=== PATIENT | female | born 1955 | race Two or more races ===

== ENCOUNTER 2023-07-21 12:57 | Inpatient (IN) | payer MEDICARE, BC ==
[~2023-07-21] VITALS: Ht 160 cm; Wt 95.3 kg
[2023-07-21] MEDS ORDERED: MORPHINE SULFATE INJ 4 MG/ML DISP.SYRIN ONE (13:40)
[2023-07-21] MEDS ORDERED: ONDANSETRON HCL/PF 4 MG/2 ML VIAL ONE (13:40)
[2023-07-21] MEDS: MORPHINE SULFATE INJ 2 MG/ML DISP.SYRIN IV ONE (14:00)
[2023-07-21] MEDS: IV NS 0.9% 1,000 ML BAG IV ONE (14:00)
[2023-07-21] MEDS: ONDANSETRON HCL/PF 4 MG/2 ML VIAL IVP ONE (14:01)
[2023-07-21 14:02] LABS: BASOPHILS % (AUTO) 0.8 % (0.0-2.0); EOSINOPHILS # (AUTO) 0.2 K/uL (0.0-0.7); EOSINOPHILS % (AUTO) 3.9 % (0.0-6.0); HEMATOCRIT 39 % (33-45); HEMOGLOBIN 12.8 g/dL (11.5-14.8); LYMPHOCYTES # (AUTO) 1.3 K/uL (0.8-4.8); LYMPHOCYTES % (AUTO) 24.9 % (20.0-44.0); MEAN CORPUSCULAR HEMOGLOBIN 26 PG (26.0-33.0); MEAN CORPUSCULAR HGB CONC 33 g/dl (31.0-36.0); MEAN CORPUSCULAR VOLUME 78 fL (82-100); MONOCYTES # (AUTO) 0.7 K/uL (0.1-1.30); MONOCYTES % (AUTO) 13.8 % (2.0-12.0); NEUTROPHILS % (AUTO) 56.6 % (43.0-81.0); PLATELET COUNT (AUTO) 183 K/uL (150-450); RED BLOOD CELL COUNT(AUTO) 4.96 MIL/uL (4.0-5.2); RED CELL DISTRIBUTION WIDTH 14.6 % (11.5-15.0); WHITE BLOOD COUNT (AUTO) 5.4 K/uL (4.3-11.0)
[2023-07-21 14:16] LABS: INR 1.01 (0.91-1.10); PARTIAL THROMBOPLASTIN TIME 25.2 SEC (24.3-34.3); PROTHROMBIN TIME 10.4 SECS (9.2-11.1)
[2023-07-21 14:18] LABS: ALANINE AMINOTRANSFERASE 41 U/L (12-78); ALBUMIN 3.6 g/dL (3.4-5.0); ALKALINE PHOSPHATASE 84 U/L (46-116); ASPARTATE AMINOTRANSFERASE 22 U/L (15-37); BILIRUBIN,DIRECT 0.2 mg/dL (0.0-0.2); BILIRUBIN,TOTAL 0.8 mg/dL (0.2-1.0); CARBON DIOXIDE 26 mmol/L (21-32); CHLORIDE 102 mmol/L (98-107); CREATININE 0.8 mg/dL (0.6-1.3); GLUCOSE 117 mg/dL (74-106); SODIUM SERUM 136 mmol/L (136-145); TOTAL PROTEIN, SERUM 7.5 g/dL (6.4-8.2); UREA NITROGEN, BLOOD 11 mg/dL (7-18)
[2023-07-21 14:19] LABS: POTASSIUM 2.8 mmol/L (3.5-5.1)
[2023-07-21 14:26] LABS: LACTIC ACID 2.5 mmol/L (0.4-2.0)
[2023-07-21] MEDS: CEFTRIAXONE 1GM BAG (ER ONLY) 1 GM/50 ML PIGGYBACK IV ONE (15:12)
[2023-07-21] MEDS ORDERED: POTASSIUM CHLORIDE 20 MEQ TAB.PRT.SR PO ONE (15:12)
[2023-07-21] MEDS: POTASSIUM CHLORIDE 20 MEQ TAB.PRT.SR PO ONE (15:12)
[2023-07-21 15:16] LABS: APPEARANCE,URINE Clear (CLEAR); BILIRUBIN,URINE Negative (NEGATIVE); BLOOD, URINE Negative Ery/uL (NEGATIVE); COLOR,URINE YELLOW (YELLOW); KETONES,URINE 15 mg/dL (NEGATIVE); LEUKOCYTE ESTERASE ,URINE Negative (NEGATIVE); NITRITE, URINE Negative (NEGATIVE); PROTEIN,URINE Negative (NEGATIVE); UGLUCOSE Negative (NEGATIVE); UROBILINOGEN,URINE 0.2 EU/dL (0.2)
[2023-07-21] MEDS ORDERED: CEFTRIAXONE 1GM BAG (ER ONLY) 100 ML IV ONE (15:27)
[2023-07-21 15:29] LABS: ADD URINE CULTURE NO; BACTERIA,URINE Few /HPF (None Seen); RBC,URINE 0-2 /HPF (0-2); SQUAMOUS EPITHELIAL CELL,UR Few /HPF (None Seen); WBC,URINE 0-2 /HPF (0-3)
[2023-07-21] MEDS ORDERED: ASPI-1169 PO (15:40)
[2023-07-21] MEDS ORDERED: DULO20CA PO (15:40)
[2023-07-21] MEDS ORDERED: ATOR40TA PO (15:40)
[2023-07-21] MEDS ORDERED: DIPH25TA62 PO (15:40)
[2023-07-21] MEDS ORDERED: ANAS1TAB50 PO (15:40)
[2023-07-21] MEDS ORDERED: AMLO2.5T4 PO ×2 (15:40)
[2023-07-21] MEDS ORDERED: CA C1TAB88 PO (15:40)
[2023-07-21 16:30] VITALS: BP 142/65; TEMP 97.7; O2SAT 100
[2023-07-21] MEDS ORDERED: MAG HYDROX/AL HYDROX/SIMETH 30 ML UDC PO PRN (16:30)
[2023-07-21] MEDS ORDERED: Z GUARD REMEDY 4 OZ OINT TP PRN (16:30)
[2023-07-21] MEDS ORDERED: MORPHINE SULFATE INJ 2 MG/ML DISP.SYRIN IV PRN (16:30)
[2023-07-21] MEDS ORDERED: ONDANSETRON HCL/PF 4 MG/2 ML VIAL IVP PRN (16:30)
[2023-07-21] MEDS ORDERED: HYDROCODONE/APAP 5/325MG TABLET PO PRN (16:30)
[2023-07-21] MEDS: ENOXAPARIN SODIUM 40 MG/0.4 ML DISP.SYRIN SQ SCH (18:34)
[2023-07-21] MEDS: IV NS 0.9% 1,000 ML IV PRN (19:05)
[2023-07-21 20:00] VITALS: BP 105/52; TEMP 98.6; O2SAT 98
[2023-07-21] MEDS: ACETAMINOPHEN 325 MG TABLET PO PRN (20:15)
[2023-07-22] VITALS: BP 99/53; TEMP 97.7; O2SAT 95
[2023-07-22 04:00] VITALS: BP 99/46; TEMP 98.3; O2SAT 94
[2023-07-22 08:00] VITALS: BP 117/56; TEMP 98.1; O2SAT 93
[2023-07-22 10:55] LABS: BASOPHILS % (AUTO) 0.7 % (0.0-2.0); EOSINOPHILS # (AUTO) 0.2 K/uL (0.0-0.7); EOSINOPHILS % (AUTO) 3.6 % (0.0-6.0); HEMATOCRIT 37 % (33-45); HEMOGLOBIN 12.1 g/dL (11.5-14.8); LYMPHOCYTES # (AUTO) 1.2 K/uL (0.8-4.8); LYMPHOCYTES % (AUTO) 22.1 % (20.0-44.0); MEAN CORPUSCULAR HEMOGLOBIN 27 PG (26.0-33.0); MEAN CORPUSCULAR HGB CONC 33 g/dl (31.0-36.0); MEAN CORPUSCULAR VOLUME 80 fL (82-100); MONOCYTES # (AUTO) 0.7 K/uL (0.1-1.30); MONOCYTES % (AUTO) 13.5 % (2.0-12.0); NEUTROPHILS # (AUTO) 3.3 K/uL (1.8-8.9); NEUTROPHILS % (AUTO) 60.1 % (43.0-81.0); PLATELET COUNT (AUTO) 169 K/uL (150-450); RED BLOOD CELL COUNT(AUTO) 4.54 MIL/uL (4.0-5.2); RED CELL DISTRIBUTION WIDTH 15.2 % (11.5-15.0); WHITE BLOOD COUNT (AUTO) 5.4 K/uL (4.3-11.0)
[2023-07-22 10:59] LABS: CALCIUM, SERUM 9.2 mg/dL (8.5-10.1); CREATININE 0.6 mg/dL (0.6-1.3); MAGNESIUM 2.4 mg/dL (1.8-2.4); PHOSPHORUS 3.3 mg/dL (2.5-4.9); POTASSIUM 3.4 mmol/L (3.5-5.1)
[2023-07-22 12:00] VITALS: BP 115/52; TEMP 98.1; O2SAT 95
[2023-07-22] MEDS: CEFTRIAXONE 1 G in IV D5W 50 ML IV SCH (15:37)
[2023-07-22 16:00] VITALS: BP 111/52; TEMP 98.8; O2SAT 93
[2023-07-22] MEDS: MAGNESIUM HYDROXIDE 30 ML UDC PO PRN (18:01)
[2023-07-22 20:00] VITALS: BP 109/55; TEMP 99; O2SAT 93
[2023-07-22 22:28] LABS: ABG BASE EXCESS 7.3 mmol/L; ABG OXYGEN SATURATION 98.2 % (92.0-98.5); ABG PCO2 15.9 mmHg (35.0-45.0); ABG PH 7.785 (7.350-7.450); ABG PO2 86.3 mmHg (75.0-100.0); ABG TOTAL HEMOGLOBIN 13.5 G/dL (12.0-16.0); COHb 0.5 % (0.5-1.5); MetHb 0.2 % (0.0-1.5); O2Hb 97.5 % (94.0-97.0); SITE, ABG Left Radial; VENT MODE, BG N/C @ 1LPM
[2023-07-23] VITALS: BP 106/47; TEMP 98.4; O2SAT 99
[2023-07-23 04:00] VITALS: BP 109/54; TEMP 97.7; O2SAT 99
[2023-07-23 05:58] VITALS: O2SAT 98
[2023-07-23 08:00] VITALS: BP 129/66; TEMP 98.4; O2SAT 98
[2023-07-23 12:00] VITALS: BP 124/76; TEMP 98; O2SAT 97
[2023-07-23] MEDS ORDERED: AMLODIPINE BESYLATE 2.5 MG TABLET PO SCH (18:00)
[2023-07-23] MEDS ORDERED: ATORVASTATIN 40 MG TABLET PO SCH (18:00)
[2023-07-24] MEDS ORDERED: DULOXETINE HCL 20 MG CAPSULE.DR PO SCH (09:00)
[2023-07-24] MEDS ORDERED: ASPIRIN 81 MG TAB.CHEW PO SCH (09:00)
[2023-07-24] MEDS ORDERED: ANASTROZOLE 1 MG TABLET PO SCH ×2 (09:00)
[2023-07-24] MEDS ORDERED: AMLODIPINE BESYLATE 2.5 MG TABLET PO SCH (09:00)
== END 2023-07-23 15:04 | disposition home or self-care (01) | DRG 641 ==
LOC: ER 13:07 → TELE1 15:45
PROVIDERS: ADMIT Internal Medicine; ATTEND Internal Medicine
PROC: 05HD33Z Insertion of Infusion Device into Right Cephalic Vein, Percutaneous Approach (ICD-10-PCS; principal; 2023-07-22)
PROC: B54MZZA Ultrasonography of Right Upper Extremity Veins, Guidance (ICD-10-PCS; 2023-07-22)
DX: E86.0 Dehydration (principal); I47.10 Supraventricular tachycardia, unspecified; E87.20 Acidosis, unspecified; E87.6 Hypokalemia; E66.9 Obesity, unspecified; K57.30 Diverticulosis of large intestine without perforation or abscess without bleeding; K76.0 Fatty (change of) liver, not elsewhere classified; N20.0 Calculus of kidney; Z85.3 Personal history of malignant neoplasm of breast; Z87.442 Personal history of urinary calculi; R53.1 Weakness; Z68.37 Body mass index [BMI] 37.0-37.9, adult; T37.0X5A Adverse effect of sulfonamides, initial encounter; Y92.89 Other specified places as the place of occurrence of the external cause; Z79.810 Long term (current) use of selective estrogen receptor modulators (SERMs)
CPT/HCPCS: 36410; 36415; 36600; 71045-TC; 80048-TC; 80076-TC; 81001; 82803-TC; 83605-TC; 83735-TC; 84100-TC; 84484-TC; 85025-TC; 85730-TC; 87040-TC; 87086-TC; A4223; G0378; J0696; J1650; J2270; J2405; J7030; J7060